=== PATIENT | male | born 1945 | race Caucasian/White ===

== ENCOUNTER 2023-05-16 07:05 | Day surgery (SDC) | payer OTHER, BC ==
[2023-05-08 16:05] VITALS: BMI 26.4
[2023-05-16] MEDS ORDERED: MIDAZOLAM HCL 2 MG/2 ML SINGLE DOSE VIAL ONE (08:44)
[2023-05-16] MEDS ORDERED: PROPOFOL 20 ML ONE ×2 (08:47→10:25)
[2023-05-16 10:04] VITALS: RESP 18; TEMP 97.4
[2023-05-16 10:11] VITALS: BP 172/74; PULSE 52
[2023-05-16] MEDS ORDERED: ceFAZolin SODIUM 1 GM VIAL ONE (10:26)
[2023-05-16] MEDS ORDERED: DEXAMETHASONE SOD PHOSPHATE 4 MG/1 ML VIAL ONE (10:26)
== END 2023-05-16 10:11 | disposition home or self-care (01) ==
LOC: FASU 07:05
PROVIDERS: ATTEND Orthopaedic Surgery Hand Surgery
PROC: 01N50ZZ Release Median Nerve, Open Approach (ICD-10-PCS; principal; 2023-05-16 08:56)
PROC: 0LN80ZZ Release Left Hand Tendon, Open Approach (ICD-10-PCS; 2023-05-16 08:56)
DX: G56.02 Carpal tunnel syndrome, left upper limb (principal); M65.332 Trigger finger, left middle finger